=== PATIENT | male | born 1990 | race Caucasian/White ===

== ENCOUNTER 2022-06-23 10:55 | Emergency (ER) | payer OTHER, SELFPAY ==
[2022-06-23 11:35] VITALS: BP 116/69; PULSE 75; RESP 16; TEMP 36.6; O2SAT 100
--- NOTE | 2022-06-23 12:04 | ED.URI ---
HPI - URI/Sore Throat General Chief Complaint: Upper Respiratory Infection Stated Complaint: fatigue, sore throat,headache Time Seen by Provider: 06/23/22 12:00 Source: patient, RN notes reviewed and old records reviewed Mode of arrival: ambulatory Limitations: no limitations History of Present Illness HPI Narrative: 32 year old male who presents to [facility] care with complaints of awakening this morning with complaints of scratchy throat, fatigue, headache, some myalgia,and scratchy throat. Patient reports that he took Tylenol this morning at 0845.Patient does not known of any ill contacts but does work in [employer] system. MD elicited complaint: sore throat and other (headache) Onset (ago): hour(s) (this am) Pain scale (0-10): 6 Treatments prior to arrival: acetaminophen Related Data Home Medications Medication Instructions Recorded Confirmed omeprazole 20 mg capsule,delayed 20 mg DAILY 06/23/22 06/23/22 release Allergies Allergy/AdvReac Type Severity Reaction Status Date / Time No Known Allergies Allergy Verified 06/23/22 11:55 Review of Systems Review of Systems: CONSTITUTIONAL: Denies malaise, chills, sweats, or fever. EYES: Denies visual changes, redness, or discharge. ENT: Denies rhinorrhea, congestion, sinus pain, otalgia,positive for scratchy sore throat. CARDIOVASCULAR: Denies chest pain, palpitations, or edema. RESPIRATORY: Reports no cough.? Denies dyspnea. GASTROINTESTINAL: Denies abdominal pain, nausea, vomiting, diarrhea SKIN: Denies rash or itching. MUSCULOSKELETAL: Reports myalgia. NEUROLOGIC: Reports headache. All systems reviewed & are unremarkable except as noted in HPI and below PMFSH Past Medical History Medical History Anxiety disorder, unspecified Depression Surgical History Surgical History History of tonsillectomy and adenoidectomy (~2007) History of uvulectomy (~2007) S/P ablation of accessory bypass tract (~2012) S/P ablation of accessory bypass tract (~2014) Status post mastoidectomy (~2001) Family History Family History Father Family history of hypercholesterolemia Grandparent , paternal Family history of lung cancer Heart disease Mother Diverticulitis Grandparent , maternal grandfather Heart disease Grandparent , paternal grandmother Breast cancer Social History Social History Social History: Pt states that he quit smoking in 2016 Years smoked: 10 Smoking status: Never smoker Second hand tobacco smoke exposure: No Smoking end date: 01/13/19 Alcohol intake: current Alcohol use details: 2-3 drinks/occ; tu/ths once q 3-5 months > 5 drinks/ occ w/ v-ball group; denies drinking w/ driving Substance use: never Additional living arrangements comments: lives / dog 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 There is no relevant family history pertinent to the presenting complaint Exam Narrative: GENERAL: Well-appearing, well-nourished, and in no acute distress. HEAD: Normocephalic EYES: PERRLA, conjunctivae clear ENT: Nares clear, turbinates edematous and erythematous, no discharge. Mucous membranes moist. TM pearly mcclain w
== END 2022-06-23 12:33 | disposition home or self-care (01) ==
PROVIDERS: Emergency Provider Registered Nurse
DX: J06.9 Acute upper respiratory infection, unspecified (principal); Z87.891 Personal history of nicotine dependence
CPT/HCPCS: 99211; G0463